=== PATIENT | female | born 1990 | race Caucasian/White ===

== ENCOUNTER 2024-11-22 22:08 | Inpatient (IN) | payer OTHER ==
[2024-11-22 22:41] VITALS: BMI 24.6
[2024-11-22] MEDS ORDERED: hydrALAZINE 20 MG/ML VIAL SLOW IVP PRN (22:59)
[2024-11-22] MEDS ORDERED: Lidocaine 1% (PF) 30 ML VIAL SC PRN (22:59)
[2024-11-22] MEDS ORDERED: Ondansetron PF 4 MG/2 ML Vial IVP PRN (22:59)
[2024-11-22] MEDS ORDERED: Oxytocin 30 units/NS 500 ML 500 ML IV SCH ×2 (23:00)
[2024-11-22 23:05] LABS: Hematocrit 36.1 % (34.9-44.5); Hemoglobin 12.1 g/dL (12.0-15.5); Mean Corpuscular Hemoglobin 32.0 pg (27.0-33.0); Mean Corpuscular Volume 95.5 fL (81.6-98.3); Platelet Count 195 10x3/uL (150-450); Red Blood Cell (RBC) Count 3.78 10x6/uL (3.90-5.03); White Blood Cell (WBC) Count 11.32 10x3/uL (3.5-10.5)
[2024-11-22 23:35] LABS: HIV (1/2) Antibody/Antigen Non-Reactive (NonReactive); HIV 1/2 INDEX 0.09 S/CO (<1.00); Hep B Surf Ag - L&D Non-Reactive S/CO (NonReactive)
[2024-11-22 23:36] LABS: Syphilis Antibody Index 0.05 S/CO (<1.00 Non-Reactive)
[2024-11-23] MEDS ORDERED: hydrALAZINE 20 MG/ML VIAL SLOW IVP PRN (01:09)
[2024-11-23] MEDS ORDERED: Bisacodyl 10 MG SUPP PR PRN (01:09)
[2024-11-23] MEDS ORDERED: Ondansetron PF 4 MG/2 ML Vial IVP PRN (01:09)
[2024-11-23] MEDS ORDERED: Milk Of Magnesia 30 ML UDCUP PO PRN (01:09)
[2024-11-23] MEDS ORDERED: HYDROcodone/Acetaminophen 10/325 mg Tablet PO PRN (01:25)
[2024-11-23] MEDS: Ibuprofen 800 MG TAB PO SCH (05:38)
[2024-11-23] MEDS: Ferrous Sulfate 325 MG TAB PO SCH (07:12)
[2024-11-23] MEDS: Boostrix 0.5 ML (Tdap) VIAL (>/=7 yrs of age) IM ONE (15:43)
[2024-11-24 08:00] VITALS: BP 97/63; TEMP 98.2
== END 2024-11-24 12:10 | disposition home or self-care (01) | DRG 807 ==
LOC: CSHLD/OP 22:08 → CSHLD 22:32 → CSHPP 11-23 03:25
PROVIDERS: ADMIT Obstetrics & Gynecology; ATTEND Obstetrics & Gynecology
PROC: 10E0XZZ Delivery of Products of Conception, External Approach (ICD-10-PCS; principal; 2024-11-23)
DX: O80 Encounter for full-term uncomplicated delivery (principal); Z37.0 Single live birth; Z3A.39 39 weeks gestation of pregnancy; Z98.890 Other specified postprocedural states; Z79.899 Other long term (current) drug therapy
CPT/HCPCS: 85027; 86780; 86850; 86900; 86901; 87340; 87389; 99285